=== PATIENT | female | born 1955 | race Caucasian/White ===

== ENCOUNTER 2017-06-02 23:56 | Emergency (ER) | payer OTHER ==
[2017-06-03] MEDS ORDERED: DIPH,PERTUS(ACELL)TETVAC-LF 0.5 ML VIAL IM ONE (01:11)
--- NOTE | 2017-06-03 02:30 | CT ---
EXAM: CT Head Without Intravenous Contrast CLINICAL HISTORY: Reason: Pain TECHNIQUE: Axial computed tomography images of the head/brain without intravenous contrast. CTDI is 57.4 mGy and DLP is 1029.9 mGy-cm This CT exam was performed using one or more of the following dose reduction techniques: automated exposure control, adjustment of the mA and/or kV according to patient size, and/or use of iterative reconstruction technique. COMPARISON: No relevant prior studies available. FINDINGS: Brain: Extensive encephalomalacia throughout the right cerebral hemisphere with ex vacuo dilation of the right lateral ventricle and slight rightward bowing of the midline. Moderate-severe global volume loss. Moderate white matter hypoattenuation, nonspecific and may be related to chronic microvascular ischemic change. No acute hemorrhage. Mass effect: No midline shift, herniation, or hydrocephalus. Bones/joints: Unremarkable. No acute fracture. Soft tissues: Unremarkable. Vasculature: Intracranial vascular calcifications. Sinuses: Partial opacification of the paranasal sinuses with an air- fluid level in the left sphenoid sinus; query acute sinusitis. Mastoid air cells: Unremarkable as visualized. No mastoid effusion. IMPRESSION: 1. No acute intracranial abnormality. 2. Chronic findings, detailed above. 3. Partial opacification of the paranasal sinuses with an air-fluid level in the left sphenoid sinus; query acute sinusitis. EXAM: CT Cervical Spine Without Intravenous Contrast CLINICAL HISTORY: Reason: Pain TECHNIQUE: Axial computed tomography images of the cervical spine without intravenous contrast. CTDI is 16.0 mGy and DLP is 320.2 mGy-cm This CT exam was performed using one or more of the following dose reduction techniques: automated exposure control, adjustment of the mA and/or kV according to patient size, and/or use of iterative reconstruction technique. COMPARISON: No relevant prior studies available. FINDINGS: Vertebrae: Cortical irregularity and linear lucency involving the left T1 transverse process seen only on axial imaging, unclear if related to acute nondisplaced fracture or artifact (series 16 images 65-66). Please correlate for point tenderness. 1 mm anterolisthesis at C3-4, 2 mm anterolisthesis at C4-5, and 2 mm retrolisthesis at C5-6. Endplate irregularity at C5-6 and C6-7 may be degenerative, however, an aggressive process such as infection not excluded. Reversal of the usual cervical lordosis. Chronic deformity of the right first and second ribs. Discs/spinal canal/neural foramina: Multilevel bony neuroforaminal narrowing due to posterior disc disease, uncovertebral spurring, and facet arthropathy. Soft tissues: Unremarkable. Larynx: Notable soft tissue prominence/edema of the larynx; query laryngitis. Follow-up for resolution recommended to exclude a laryngeal mass. Thyroid: Subcentimeter thyroid nodules. Lung apices: Mild centrilobular emphysematous changes. Other findings: Surgical clips in bilateral neck. Notable varices throughout the neck. IMPRESSION: 1. Cortical irregularity and linear lucency involving the left T1 transverse process seen only on axial imaging, unclear if related to acute nondisplaced fracture or artifact (series 16 images 65-66). Please correlate for point tenderness. 2. 1 mm anterolisthesis at C3-4, 2 mm anterolisthesis at C4-5, and 2 mm retrolisthesis at C5-6. 3. Notable soft tissue prominence/edema of the larynx; query laryngitis. Follow-up for resolution recommended to exclude a laryngeal mass. 4. Subcentimeter thyroid nodules. 5. Multilevel bony neuroforaminal narrowing due to posterior disc disease, uncovertebral spurring, and facet arthropathy. 6. Endplate irregularity at C5-6 and C6-7 may be degenerative, however, an aggressive process such as infection not excluded. 7. Mild centrilobular emphysematous changes. [employer] 06/03/17 02:44 Verify Receipt Verified receipt with YOSELYN Roberson, given to to Dr Martinez on 06/03 02:43 (-04:00)
--- NOTE | 2017-06-03 02:31 | XR ---
EXAM: XR Left Elbow Complete, 3 or More Views CLINICAL HISTORY: Reason: Pain TECHNIQUE: 3 views of the left elbow. COMPARISON: No relevant prior studies available. FINDINGS: Bones/joints: Limited exam due to lack of a true frontal or lateral view. No definite acute fracture or dislocation. If there is high clinical suspicion for an acute process, recommend repeat imaging with better positioning. Soft tissues: Soft tissue irregularity of the posterior elbow with suspected soft tissue air. IMPRESSION: 1. Limited exam due to lack of a true frontal or lateral view. No definite acute fracture or dislocation. If there is high clinical suspicion for an acute process, recommend repeat imaging with better positioning. 2. Soft tissue irregularity of the posterior elbow with suspected soft tissue air; query laceration.
--- NOTE | 2017-06-03 05:37 | ED ---
Fall HPI - General Chief Complaint: Fall Stated Complaint: fall Time Seen by Provider: 06/03/17 00:23 Source: patient, EMS Mode of arrival: EMS - History of Present Illness MD Complaint: fall Onset/Timin -: hour(s) Fall From: out of bed When Fall Occurred: 1-3 hours [employer] Fall Witnessed: yes, by living facility staff Place [facility] Occ[facility] Loss of Consciousness: none Prolonged Down Time?: no Location: head Location - Extremities: Left: Elbow Quality: sharp Associated Symptoms: headache - Related Data Allergies Allergy/AdvReac Type Severity Reaction Status Date / Time No Known Allergies Allergy Verified 06/03/17 01:15 Review of Systems ROS Statement: Those systems with pertinent positive or pertinent negative responses have been documented in the HPI. ROS Other: All systems not noted in ROS Statement are negative. Constitutional: Denies: fever, weakness Eyes: Denies: vision change Respiratory: Denies: cough Cardiovascular: Denies: chest pain Gastrointestinal: Denies: abdominal pain, nausea, vomiting Musculoskeletal: Denies: back pain Skin: Reports: other (Left elbow laceration) Neurological: Denies: headache, weakness Hematological/Lymphatic: Denies: easy bleeding Past Medical History Past Medical History: CVA/TIA Additional Past Medical History / Comment(s): CVA Nov 2016, Hepatitis C History of Any Multi-Drug Resistant Organisms: None Reported Past Surgical History: Tonsillectomy Past Psychological History: Anxiety, Bipolar, Depression Smoking Status: Current every day smoker Past Alcohol Use History: Occasional Past Drug Use History: None Reported General Exam Limitations: no limitations General appearance: alert, in no apparent distress Head exam: Present: atraumatic, normocephalic Eye exam: Present: normal appearance. Absent: scleral icterus, conjunctival injection Neck exam: Present: normal inspection, full ROM. Absent: tenderness Respiratory exam: Present: normal lung sounds bilaterally. Absent: respiratory distress, wheezes, rales, rhonchi Cardiovascular Exam: Present: regular rate, normal rhythm, normal heart sounds. Absent: systolic murmur, diastolic murmur, rubs, gallop GI/Abdominal exam: Present: soft. Absent: distended, tenderness, guarding, rebound, rigid Extremities exam: Present: normal inspection, normal capillary refill, other ( Laceration left elbow). Absent: pedal edema, calf tenderness Back exam: Present: normal inspection. Absent: CVA tenderness (R), CVA tenderness (L) Neurological exam: Present: alert Skin exam: Present: warm, dry, normal color, other (As above) Course Vital Signs 06/02/17 06/03/17 06/03/17 23:57 02:42 06:19 Temperature 98.5 F 97.3 F L Pulse Rate 79 81 78 Respiratory 16 16 14 Rate Blood Pressure 127/59 119/57 123/58 O2 Sat by Pulse 96 96 98 Oximetry Procedures - Laceration Laceration #1 Consent Obtained: verbal consent Indication: laceration Site: upper extremity Description: linear Depth: simple, single layer Anesthetic Used: lidocaine 1% Anesthesia Technique: local infiltration Size of Sutures: 3-0 Number of Sutures: 4 Technique: simple, interrupted Patient Tolerated Procedure: well, no complications Disposition Clinical Impression: Fall, Head injury, Laceration Disposition: HOME SELF-CARE Condition: Good Instructions: Laceration (ED), Head Injury (ED), Contusion in Adults (ED) Referrals: Randall Bryant MD [Primary Care Provider] - 1-2 days
[2017-06-03 06:21] VITALS: BP 123/58; PULSE 78; RESP 14; TEMP 97.3
--- NOTE | 2017-06-17 10:35 | CDI ---
Documentation Clarification OP Dear Dr. Maximo Crystal Please do addendum to ED report that provides Laceration Lenght repair. Thank you, Sánchez Maldonado Associate Professor Of Counseling If you have any questions, please contact Clinical Informatics Specialist at [phone] [facility]
== END 2017-06-03 06:33 | disposition home or self-care (01) ==
LOC: EC 23:56
DX: S51.012A Laceration without foreign body of left elbow, initial encounter (principal); S09.90XA Unspecified injury of head, initial encounter; F17.200 Nicotine dependence, unspecified, uncomplicated; Z23 Encounter for immunization; W06.XXXA Fall from bed, initial encounter; Y92.122 Bedroom in nursing home as the place of occurrence of the external cause
CPT/HCPCS: 12002; 70450; 72125; 90471; 90715; 99284

== ENCOUNTER 2017-12-09 01:44 | Emergency (ER) | payer OTHER ==
--- NOTE | 2017-12-09 02:41 | XR ---
EXAM: XR Left Humerus, 2 or More Views CLINICAL HISTORY: Reason: Pain TECHNIQUE: Frontal and lateral views of the left humerus. COMPARISON: No relevant prior studies available. FINDINGS: Bones/joints: Mildly displaced transverse fracture through the left proximal humerus. Displaced medially by approximately one cortical width. No dislocation. Widening of the acromioclavicular joint may be due to prior trauma or surgery. Soft tissues: Unremarkable. IMPRESSION: Mildly displaced transverse fracture through the left proximal humerus.
[2017-12-09 03:07] LABS: Appearance,Urine Cloudy (Clear); Bacteria,Urine Few /hpf; Bilirubin,Urine Negative (Negative); Blood,Urine Small (Negative); Color,Urine Yellow; Glucose,Urine (UA) Negative (Negative); Ketones,Urine Negative (Negative); Leukocyte Esterase,Urine Small (Negative); Nitrite,Urine Negative (Negative); PH, Urine 6.5 (5.0-8.0); Protein,Urine Negative (Negative); RBC,Urine 10 /hpf (0-5); Specific Gravity,Urine 1.007 (1.001-1.035); Squamous Epithelial Cell,Urine 1 /hpf (0-4); WBC,Urine 9 /hpf (0-5)
--- NOTE | 2017-12-09 04:30 | ED ---
Upper Extremity HPI - General Chief Complaint: Extremity Injury, Upper Stated Complaint: Fractured humerus Time Seen by Provider: 12/09/17 02:03 Source: patient, EMS Mode of arrival: EMS Limitations: no limitations, language barrier - History of Present Illness Initial Comments: 62-year-old female patient is sent to the emergency department today for evaluation of a left humeral fracture. Patient is a resident of [facility]. Patient reports that approximate one week ago she was being assisted into her wheelchair by 2 staff members at the halfway. She states that she slipped and almost fell, states that her left arm was wrenched. She states that she's been having significant pain to the arm since then. States that she began to have increased swelling and bruising stay did perform an x-ray earlier today. She reports that they informed her it was broken and he wanted her to come here for further evaluation. Patient denies any numbness or tingling to the left upper extremity. She denies any other injuries from the fall. Patient denies any headache, neck pain, back pain, chest pain, shortness of breath, dizziness, weakness, abdominal pain, nausea, vomiting, or difficulties with bowel movements or urination. - Related Data Previous Rx's Medication Instructions Recorded Hydrocodone/Acetaminophen [Gonzales 1 tab PO Q6HR PRN #12 tab 12/09/17 5-325] Allergies Allergy/AdvReac Type Severity Reaction Status Date / Time No Known Allergies Allergy Verified 12/09/17 01:52 Review of Systems ROS Statement: Those systems with pertinent positive or pertinent negative responses have been documented in the HPI. ROS Other: All systems not noted in ROS Statement are negative. Past Medical History Past Medical History: CVA/TIA Additional Past Medical History / Comment(s): CVA Nov 2016, Hepatitis C History of Any Multi-Drug Resistant Organisms: None Reported Past Surgical History: Tonsillectomy Past Psychological History: Anxiety, Bipolar, Depression Smoking Status: Current every day smoker Past Alcohol Use History: Occasional Past Drug Use History: None Reported General Exam Limitations: no limitations, language barrier General appearance: alert, in no apparent distress, other (This is a well- developed, well-nourished adult female patient in no acute distress. Vital signs upon presentation were temperature 99.1F, pulse 90, respirations 20, blood pressure 150/68, pulse ox 93% on room air.) Head exam: Present: atraumatic, normocephalic, normal inspection Eye exam: Present: normal appearance, PERRL, EOMI. Absent: scleral icterus, conjunctival injection, periorbital swelling ENT exam: Present: normal exam, normal oropharynx, mucous membranes moist Respiratory exam: Present: normal lung sounds bilaterally. Absent: respiratory distress, wheezes, rales, rhonchi, stridor Cardiovascular Exam: Present: regular rate, normal rhythm, normal heart sounds. Absent: systolic murmur, diastolic murmur, rubs, gallop, clicks GI/Abdominal exam: Present: soft, normal bowel sounds. Absent: distended, tenderness, guarding, rebound, rigid External exam: Present: normal external exam Speculum exam: Present: normal speculum exam. Absent: vaginal bleeding Extremities exam: Present: normal inspection, full ROM, tenderness (Over the left upper arm), normal capillary refill, other (There is swelling and ecchymosis noted to the left upper arm. The remainder of the arm is pink, warm , and dry. Cap refills less than 3 seconds. Radial pulses are 2+ and equal bilaterally.). Absent: pedal edema, joint swelling, calf tenderness Neurological exam: Present: alert, oriented X3, CN II-XII intact Psychiatric exam: Present: normal affect, normal mood Skin exam: Present: warm, dry, intact, normal color. Absent: rash Course Vital Signs 12/09/17 12/09/17 12/09/17 01:48 03:52 05:40 Temperature 99.1 F 97.7 F 98.4 F Pulse Rate 90 88 87 Respiratory 20 20 18 Rate Blood Pressure 150/68 154/84 155/75 O2 Sat by Pulse 93 L 97 97 Oximetry Medical Decision Making - Medical Decision Making 62-year-old female patient presents to the emergency department today sent by her extended care facility for evaluation of a fracture to her left humerus. Physical examination did reveal ecchymosis and swelling to the left upper arm. Neurovascular status was intact. X-ray was obtained and did show a mildly displaced transverse fracture to the proximal humerus. During her visit patient did report that she had some vaginal bleeding yesterday. She states that this was present in her brief, not related to any bowel movements. She states that she has never had this before. We did perform a pelvic examination. There is no evidence of vaginal bleeding at this time. Patient will be discharged back to her extended care facility at this time to follow-up with both orthopedics and her compressor station engineer as soon as possible. She is in a sling. She is given Gonzales for pain control. She is instructed to return here immediate for any new, worsening, or concerning symptoms. She verbalizes understanding and agrees with this plan. - Lab Data Lab Results 12/09/17 Range/Units 02:49 Urine Color Yellow Urine Appearance Cloudy H (Clear) Urine pH 6.5 (5.0-8.0) Ur Specific [place] 1.007 (1.001-1.035) Urine Protein Negative (Negative) Urine Glucose (UA) Negative (Negative) Urine Ketones Negative (Negative) Urine Blood Small H (Negative) Urine Nitrite Negative (Negative) Urine Bilirubin Negative (Negative) Urine Urobilinogen 2.0 (<2.0) mg/dL Ur Leukocyte Esterase Small H (Negative) Urine RBC 10 H (0-5) /hpf Urine WBC 9 H (0-5) /hpf Ur Squamous Epith Cells 1 (0-4) /hpf Urine Bacteria Few H (None) /hpf - Radiology Data Radiology results: report reviewed, image reviewed 2 views of the left humerus are obtained and did show mildly displaced transverse fractures of the left proximal humerus. Displaced medially by approximately one cortical width. No dislocation. Widening of the acromioclavicular joint may be due to prior trauma or surgery. Soft tissues are unremarkable. Impression by Dr. Winn shows mildly displaced transverse fracture of left proximal humerus. Disposition Clinical Impression: Left humeral fracture, Vaginal bleeding Disposition: HOME SELF-CARE Condition: Good Instructions: Dysfunctional Uterine Bleeding (ED), Proximal Humerus Fracture ( ED) Additional Instructions: Follow-up with orthopedics as soon as possible. Use sling for comfort and support. Follow-up with your compressor station engineer as soon as possible for further evaluation of the bleeding and possible ultrasound. Return here immediately for any new, worsening, or concerning symptoms. Prescriptions: Hydrocodone/Acetaminophen [Gonzales 5-325] 1 tab PO Q6HR PRN #12 tab PRN Reason: Pain Referrals: Randall Bryant MD [Primary Care Provider] - 1-2 days Rusty Anderson MD [STAFF PHYSICIAN] - 1-2 days Time of Disposition: 04:30
[2017-12-09 05:41] VITALS: BP 155/75; PULSE 87; RESP 18; TEMP 98.4
== END 2017-12-09 05:43 | disposition home or self-care (01) ==
LOC: EC 01:44
DX: S42.202A Unspecified fracture of upper end of left humerus, initial encounter for closed fracture (principal); N93.9 Abnormal uterine and vaginal bleeding, unspecified; F17.200 Nicotine dependence, unspecified, uncomplicated; Z86.73 Personal history of transient ischemic attack (TIA), and cerebral infarction without residual deficits; W01.0XXA Fall on same level from slipping, tripping and stumbling without subsequent striking against object, initial encounter; Y92.129 Unspecified place in nursing home as the place of occurrence of the external cause
CPT/HCPCS: 81001; 99284

== ENCOUNTER → 2017-12-23 | Outpatient (CLI) | payer OTHER | END | disposition home or self-care (01) | LOC: RADBDWWP 07:57 | PROVIDERS: ATTEND Internal Medicine | DX: Z53.9 Procedure and treatment not carried out, unspecified reason (principal) ==

== ENCOUNTER 2019-06-15 19:54 | Emergency (ER) | payer OTHER ==
[2019-06-15 20:13] VITALS: RESP 16
[2019-06-15] MEDS ORDERED: LIDOCAINE 1% INJ 10MG/ML (20 ML MDV) SQ ONE (20:41)
[2019-06-15] MEDS ORDERED: DIPH,PERTUS(ACELL)TETVAC-LF 0.5 ML VIAL IM ONE (20:41)
--- NOTE | 2019-06-15 20:46 | ED ---
Fall HPI - General Chief Complaint: Fall Stated Complaint: Fall Time Seen by Provider: 06/15/19 20:15 Source: EMS Mode of arrival: EMS - History of Present Illness Initial Comments: 64-year-old female patient presents to the emergency department today for evaluation after experiencing a fall. Patient states she was going to get out of bed when she felt dizzy, weak, and fell. Patient believes she may have lost consciousness for a short period of time. Patient does have history of seizures, staff at the [facility] where she resides states that she was staring off into space for a few moments before getting up. Patient denies any chest pain or shortness of breath. Denies any palpitations. She denies abdominal pain, nausea, or vomiting. Patient does have history of CVA and does have residual left-sided weakness related to this. Patient denies any recent rash, fever, chills, diarrhea, constipation, back pain, hematuria, dysuria, urinary urgency, urinary frequency, headache, visual changes, or any other complaints. - Related Data Home Medications Medication Instructions Recorded Confirmed Acetaminophen Tab [Tylenol Tab] 650 mg PO Q6H PRN 06/15/19 06/15/19 Bisacodyl 10 mg RECTAL DAILY PRN 06/15/19 06/15/19 DULoxetine HCL [Cymbalta] 30 mg PO DAILY 06/15/19 06/15/19 Furosemide [Lasix] 20 mg PO DAILY 06/15/19 06/15/19 Hydrocodone/Acetaminophen [[place] 1 tab PO HS 06/15/19 06/15/19 7.5-325] Hydrocodone/Acetaminophen [[place] 1 tab PO Q4HR PRN 06/15/19 06/15/19 7.5-325] LORazepam [Ativan] 1 mg PO HS 06/15/19 06/15/19 Lacosamide [Vimpat] 200 mg PO BID 06/15/19 06/15/19 Lactulose 40 gm PO QID 06/15/19 06/15/19 Lidocaine 4% Cream [Lmx 4] 1 applic TOPICAL TID 06/15/19 06/15/19 Meloxicam [Mobic] 7.5 mg PO HS 06/15/19 06/15/19 Morphine Sulfate [Morphine Sulfate 5 mg PO Q3H PRN 06/15/19 06/15/19 Oral Soln Conc (20 MG/ML)] Nitroglycerin Sl Tabs [Nitrostat] 0.4 mg SUBLINGUAL Q5M PRN 06/15/19 06/15/19 Potassium Chloride ER [K-Dur 10] 10 meq PO DAILY 06/15/19 06/15/19 hydrOXYzine HCL [Atarax] 25 mg PO QID 06/15/19 06/15/19 levETIRAcetam [levETIRAcetam Oral 500 mg PO BID 06/15/19 06/15/19 Solution] Allergies Allergy/AdvReac Type Severity Reaction Status Date / Time Penicillins Allergy Unknown Verified 06/15/19 20:13 tramadol [From Ultram] Allergy Unknown Verified 06/15/19 20:13 Review of Systems ROS Statement: Those systems with pertinent positive or pertinent negative responses have been documented in the HPI. ROS Other: All systems not noted in ROS Statement are negative. 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 Vital signs upon presentation are temperature 98.6F, pulse 80, respirations 16, blood pressure 151/66, pulse ox 99% on room air.) Head exam: Present: other (Patient has 3 cm laceration noted to the left forehead with surrounding soft tissue swelling and ecchymosis. ) Eye exam: Present: normal appearance, PERRL, EOMI, periorbital tenderness (There is superior orbital and inferior orbital tenderness.). Absent: scleral icterus, conjunctival injection, nystagmus, periorbital swelling ENT exam: Present: normal exam, normal oropharynx, mucous membranes moist Neck exam: Present: normal inspection, full ROM, other (Nontender, no step-off, no deformity to firm midline palpation of the posterior cervical spine. Full range of motion without pain or limitation.). Absent: tenderness, meningismus, lymphadenopathy Respiratory exam: Present: normal lung sounds bilaterally. Absent: respiratory distress, wheezes, rales, rhonchi, stridor Cardiovascular Exam: Present: regular rate, normal rhythm, normal heart sounds. Absent: systolic murmur, diastolic murmur, rubs, gallop, clicks GI/Abdominal exam: Present: soft, normal bowel sounds. Absent: distended, tenderness, guarding, rebound, rigid Neurological exam: Present: alert, oriented X3, CN II-XII intact Psychiatric exam: Present: normal affect, normal mood Skin exam: Present: warm, dry, intact, normal color. Absent: rash Course Vital Signs 06/15/19 06/16/19 20:04 00:16 Temperature 98.6 F 98.9 F Pulse Rate 80 68 Respiratory 16 16 Rate Blood Pressure 151/66 131/59 O2 Sat by Pulse 99 96 Oximetry Procedures - Laceration Laceration #1 Consent Obtained: verbal consent Indication: laceration Site: face (Left forehead) Size (cm): 3 Description: linear Depth: simple, single layer Anesthetic Used: lidocaine 1% Anesthesia Technique: local infiltration Amount (mls): 2 Pre-repair: irrigated extensively Type of Sutures: nylon Size of Sutures: 5-0 Number of Sutures: 4 Technique: simple, interrupted Patient Tolerated Procedure: well, no complications Medical Decision Making - Medical Decision Making 64-year-old female patient presented to the emergency department today for evaluation after experiencing a fall from bed. Physical examination did reveal left periorbital swelling and ecchymosis. There is a 3 cm laceration noted to the left forehead. Labs reviewed and did reveal hemoglobin 9.5, patient has known anemia. INR 1.3. Magnesium 1.5, this will be replaced orally. Urinalysis shows no evidence for infection. CT brain and C-spine were obtained and showed no acute abnormalities. Laceration was repaired as documented. Patient was updated on her tetanus vaccine. She'll be discharged back to her extended care facility. Return parameters were discussed in detail. Patient verbalizes understanding. - Lab Data Result diagrams: 06/15/19 22:05 06/15/19 22:05 Lab Results 06/15/19 06/15/19 06/15/19 Range/Units 22:05 22:05 22:05 WBC 4.1 (3.8-10.6) k/uL RBC 2.70 L (3.80-5.40) m/uL Hgb 9.5 L (11.4-16.0) gm/dL Hct 28.6 L (34.0-46.0) % MCV 106.1 H (80.0-100.0) fL MCH 35.4 H (25.0-35.0) pg MCHC 33.3 (31.0-37.0) g/dL RDW 16.9 H (11.5-15.5) % Plt Count 64 L (150-450) k/uL Neutrophils % 75 % Lymphocytes % 11 % Monocytes % 9 % Eosinophils % 3 % Basophils % 0 % Neutrophils # 3.0 (1.3-7.7) k/uL Lymphocytes # 0.5 L (1.0-4.8) k/uL Monocytes # 0.4 (0-1.0) k/uL Eosinophils # 0.1 (0-0.7) k/uL Basophils # 0.0 (0-0.2) k/uL Manual Slide Review Performed Polychromasia Present Hypochromasia Slight Poikilocytosis Moderate Anisocytosis Slight Macrocytosis Moderate Ovalocytes Present PT (9.0-12.0) sec INR (<1.2) APTT (22.0-30.0) sec Sodium 136 L (137-145) mmol/L Potassium 4.0 (3.5-5.1) mmol/L Chloride 108 H (98-107) mmol/L Carbon Dioxide 22 (22-30) mmol/L Anion Gap 6 mmol/L BUN 11 (7-17) mg/dL Creatinine 0.65 (0.52-1.04) mg/dL Est GFR (CKD-EPI)AfAm >90 (>60 ml/min/1.73 sqM) Est GFR (CKD-EPI)NonAf >90 (>60 ml/min/1.73 sqM) Glucose 136 H (74-99) mg/dL Calcium 7.8 L (8.4-10.2) mg/dL Magnesium 1.5 L (1.6-2.3) mg/dL Total Bilirubin 2.0 H (0.2-1.3) mg/dL AST 34 (14-36) U/L ALT 6 L (9-52) U/L Alkaline Phosphatase 90 (38-126) U/L Troponin I <0.012 (0.000-0.034) ng/mL Total Protein 7.9 (6.3-8.2) g/dL Albumin 2.7 L (3.5-5.0) g/dL Urine Color Urine Appearance (Clear) Urine pH (5.0-8.0) Ur Specific [place] (1.001-1.035) Urine Protein (Negative) Urine Glucose (UA) (Negative) Urine Ketones (Negative) Urine Blood (Negative) Urine Nitrite (Negative) Urine Bilirubin (Negative) Urine Urobilinogen (<2.0) mg/dL Ur Leukocyte Esterase (Negative) Urine RBC (0-5) /hpf Urine WBC (0-5) /hpf Ur Squamous Epith Cells (0-4) /hpf Urine Bacteria (None) /hpf Hyaline Casts (0-2) /lpf Urine Mucus (None) /hpf 06/15/19 06/16/19 Range/Units 22:05 00:00 WBC (3.8-10.6) k/uL RBC (3.80-5.40) m/uL Hgb (11.4-16.0) gm/dL Hct (34.0-46.0) % MCV (80.0-100.0) fL MCH (25.0-35.0) pg MCHC (31.0-37.0) g/dL RDW (11.5-15.5) % Plt Count (150-450) k/uL Neutrophils % % Lymphocytes % % Monocytes % % Eosinophils % % Basophils % % Neutrophils # (1.3-7.7) k/uL Lymphocytes # (1.0-4.8) k/uL Monocytes # (0-1.0) k/uL Eosinophils # (0-0.7) k/uL Basophils # (0-0.2) k/uL Manual Slide Review Polychromasia Hypochromasia Poikilocytosis Anisocytosis Macrocytosis Ovalocytes PT 13.4 H (9.0-12.0) sec INR 1.3 H (<1.2) APTT 36.1 H (22.0-30.0) sec Sodium (137-145) mmol/L Potassium (3.5-5.1) mmol/L Chloride (98-107) mmol/L Carbon Dioxide (22-30) mmol/L Anion Gap mmol/L BUN (7-17) mg/dL Creatinine (0.52-1.04) mg/dL Est GFR (CKD-EPI)AfAm (>60 ml/min/1.73 sqM) Est GFR (CKD-EPI)NonAf (>60 ml/min/1.73 sqM) Glucose (74-99) mg/dL Calcium (8.4-10.2) mg/dL Magnesium (1.6-2.3) mg/dL Total Bilirubin (0.2-1.3) mg/dL AST (14-36) U/L ALT (9-52) U/L Alkaline Phosphatase (38-126) U/L Troponin I (0.000-0.034) ng/mL Total Protein (6.3-8.2) g/dL Albumin (3.5-5.0) g/dL Urine Color Yellow Urine Appearance Cloudy H (Clear) Urine pH 6.0 (5.0-8.0) Ur Specific [place] 1.015 (1.001-1.035) Urine Protein Negative (Negative) Urine Glucose (UA) Negative (Negative) Urine Ketones Negative (Negative) Urine Blood Negative (Negative) Urine Nitrite Negative (Negative) Urine Bilirubin Negative (Negative) Urine Urobilinogen 4.0 (<2.0) mg/dL Ur Leukocyte Esterase Negative (Negative) Urine RBC 10 H (0-5) /hpf Urine WBC 1 (0-5) /hpf Ur Squamous Epith Cells 3 (0-4) /hpf Urine Bacteria Occasional H (None) /hpf Hyaline Casts 1 (0-2) /lpf Urine Mucus Rare H (None) /hpf - Radiology Data Radiology results: report reviewed, image reviewed Two-view x-ray of the chest is obtained. Report was reviewed in its entirety. Impression by Dr. Calderon shows basilar atelectasis favored over pneumonia, c orrelate clinically. CT of the head and C-spine was obtained. Report was reviewed in its entirety. Impression by Dr. Camarena shows no acute intracranial hemorrhage or calvarial fracture, no acute fracture of the cervical spine. Disposition Clinical Impression: Periorbital contusion of left eye, Forehead laceration Disposition: HOME SELF-CARE Condition: Good Instructions (If sedation given, give patient instructions): Care For Your Stitches (ED), Laceration (ED), Black Eye (ED), Fall Prevention for Older Adults (ED), Contusion in Adults (ED) Additional Instructions: Have stitches removed in 5 days. Monitor for signs or symptoms of worsening head injury. Apply ice to the painful areas. Follow-up with her primary care physician for recheck in 1-2 days. Return to the emergency department immediately for any new, worsening, or concerning symptoms. Is patient prescribed a controlled substance at d/c from ED?: No Referrals: Randall Bryant MD [Primary Care Provider] - 1-2 days Time of Disposition: 01:33
--- NOTE | 2019-06-15 21:18 | XR ---
EXAMINATION TYPE: XR chest 2V DATE OF EXAM: 06/15/2019 COMPARISON: NONE TECHNIQUE: PA and lateral views submitted. HISTORY: Chest pain FINDINGS: The lungs are clear and there is no pneumothorax, pleural effusion, or focal pneumonia. Subsegmenta l changes at the lung bases noted on the lateral view. No overt failure. Degenerative change of the s pine. IMPRESSION: 1. Basilar atelectasis favored over pneumonia correlate clinically.
--- NOTE | 2019-06-15 21:41 | CT ---
EXAM: CT Head Without Intravenous Contrast CLINICAL HISTORY: Pain TECHNIQUE: Axial computed tomography images of the head/brain without intravenous contrast. CTDI is 0.085, 0.085, 45.2, 9.8 mGy and DLP is 1286.7 mGy-cm. This CT exam was performed using one or more of the following dose reduction techniques: automated exposure control, adjustment of the mA and/or kV according to patient size, and/or use of iterative reconstruction technique. COMPARISON: 06/03/2017 FINDINGS: Brain: No acute intracranial hemorrhage, acute territorial infarct, or significant mass effect. Nonspecific areas of hypoattenuation in the periventricular white matter likely represent the sequela of chronic small vessel ischemic disease. Encephalomalacia in the right cerebral hemisphere. Ventricles: Exvacuodilatation of the posterior horn of the right lateral ventricle. Ventricular and sulcal prominence commensurate with the patient's age. Bones/joints: Unremarkable. No acute fracture. Soft tissues: Left preseptal hematoma/laceration. Sinuses: Mucosal thickening in the paranasal sinuses. Fluid is present in bilateral maxillary sinuses. Mastoid air cells: Unremarkable. IMPRESSION: No acute intracranial hemorrhage or calvarial fracture. EXAM: CT Cervical Spine Without Intravenous Contrast CLINICAL HISTORY: Pain TECHNIQUE: Axial computed tomography images of the cervical spine without intravenous contrast. CTDI is 0.085, 0.085, 45.2, 9.8 mGy and DLP is 1286.7 mGy-cm. This CT exam was performed using one or more of the following dose reduction techniques: automated exposure control, adjustment of the mA and/or kV according to patient size, and/or use of iterative reconstruction technique. COMPARISON: No relevant prior studies available. FINDINGS: Artifacts: Motion. Vertebrae: No acute fracture. Stable grade 1 anterolisthesis of C4 on C5. Straightening of the normal cervical lordosis. Discs/spinal canal/neural foramina: Disc height loss, osteophytes, uncovertebral spurs, and facet arthropathy. Multilevel foraminal narrowing. No significant osseous spinal stenosis. Soft tissues: Unremarkable. IMPRESSION: No acute fracture.
[2019-06-15 22:18] LABS: Anisocytosis Slight; Basophils % (A) 0 %; Eosinophils # (A) 0.1 k/uL (0-0.7); Eosinophils % (A) 3 %; HCT 28.6 % (34.0-46.0); HGB 9.5 gm/dL (11.4-16.0); Hypochromasia Slight; Lymphocytes # (A) 0.5 k/uL (1.0-4.8); Lymphocytes % (A) 11 %; MCH 35.4 pg (25.0-35.0); MCHC 33.3 g/dL (31.0-37.0); MCV 106.1 fL (80.0-100.0); Macrocytosis Moderate; Mean Platelet Volume 7.6; Monocytes # (A) 0.4 k/uL (0-1.0); Monocytes % (A) 9 %; Neutrophils % (A) 75 %; Poikilocytosis Moderate; RDW 16.9 % (11.5-15.5); WBC 4.1 k/uL (3.8-10.6)
[2019-06-15 22:28] LABS: ALT 6 U/L (9-52); AST 34 U/L (14-36); African American GFR (CKD) >90 (>60 ml/min/1.73 sqM); Albumin 2.7 g/dL (3.5-5.0); Alkaline Phosphatase 90 U/L (38-126); Anion Gap 6 mmol/L; Blood Urea Nitrogen 11 mg/dL (7-17); Calcium 7.8 mg/dL (8.4-10.2); Carbon Dioxide 22 mmol/L (22-30); Chloride 108 mmol/L (98-107); Glucose 136 mg/dL (74-99); INR 1.3 (<1.2); Magnesium 1.5 mg/dL (1.6-2.3); Partial Thromboplastin Time 36.1 sec (22.0-30.0); Prothrombin Time 13.4 sec (9.0-12.0); Sodium 136 mmol/L (137-145); Total Protein 7.9 g/dL (6.3-8.2)
[2019-06-15 22:39] LABS: Ovalocytes Present; Platelet Count 64 k/uL (150-450); Polychromasia Present
[2019-06-16 00:17] VITALS: BP 131/59; PULSE 68; TEMP 98.9
[2019-06-16 01:00] LABS: Appearance,Urine Cloudy (Clear); Bacteria,Urine Occasional /hpf; Bilirubin,Urine Negative (Negative); Blood,Urine Negative (Negative); Color,Urine Yellow; Glucose,Urine (UA) Negative (Negative); Hyaline Casts,Urine 1 /lpf (0-2); Ketones,Urine Negative (Negative); Leukocyte Esterase,Urine Negative (Negative); Mucus,Urine Rare /hpf; Nitrite,Urine Negative (Negative); Protein,Urine Negative (Negative); RBC,Urine 10 /hpf (0-5); Specific Gravity,Urine 1.015 (1.001-1.035); Squamous Epithelial Cell,Urine 3 /hpf (0-4); WBC,Urine 1 /hpf (0-5)
[2019-06-16] MEDS ORDERED: MAGNESIUM OXIDE 400 MG TAB PO STA (01:22)
== END 2019-06-16 02:19 | disposition home or self-care (01) ==
LOC: EC 19:54
DX: S01.81XA Laceration without foreign body of other part of head, initial encounter (principal); S00.12XA Contusion of left eyelid and periocular area, initial encounter; D64.9 Anemia, unspecified; I10 Essential (primary) hypertension; G40.909 Epilepsy, unspecified, not intractable, without status epilepticus; F41.9 Anxiety disorder, unspecified; F31.9 Bipolar disorder, unspecified; F17.200 Nicotine dependence, unspecified, uncomplicated; Z23 Encounter for immunization; Z86.73 Personal history of transient ischemic attack (TIA), and cerebral infarction without residual deficits; Z79.1 Long term (current) use of non-steroidal anti-inflammatories (NSAID); Z79.891 Long term (current) use of opiate analgesic; Z79.899 Other long term (current) drug therapy; Z88.0 Allergy status to penicillin; Z88.5 Allergy status to narcotic agent; W06.XXXA Fall from bed, initial encounter
CPT/HCPCS: 99284 ×2; 12013 ×2; 90471 ×2; 36415; 93005; 80053; 83735; 84484; 85025; 85610; 85730; 81001; 71046; 72125; 70450; 90715; J2001